=== PATIENT | female | born 1970 | race Caucasian/White ===

== ENCOUNTER → 2020-03-29 | Outpatient (CLI) | payer OTHER, MEDICAID | LOC: M.LAB 16:10 | PROVIDERS: ATTEND Internal Medicine Gastroenterology | DX: Z01.812 Encounter for preprocedural laboratory examination (principal); Z20.828 Contact with and (suspected) exposure to other viral communicable diseases; K21.9 Gastro-esophageal reflux disease without esophagitis; Z79.1 Long term (current) use of non-steroidal anti-inflammatories (NSAID); K59.09 Other constipation ==

== ENCOUNTER 2020-11-14 07:55 | Emergency (ER) | payer MEDICARE, MEDICAID ==
[~2020-11-14] VITALS: Ht 144.8 cm; Wt 49.9 kg
[2020-11-14] MEDS ORDERED: ALPRAZOLAM ER2 MG PO (08:12)
[2020-11-14] MEDS ORDERED: LEXAPRO 10 MG T10 M2 PO (08:13)
[2020-11-14] MEDS ORDERED: ALPRAZOLAM1 MG PO (08:13)
[2020-11-14] MEDS ORDERED: TRAZODONE HCL100 MG PO (08:13)
[2020-11-14] MEDS ORDERED: ADVAIR 250-501 EACH INH (08:14)
[2020-11-14] MEDS ORDERED: PROAIR HFA8.5 GM INH (08:14)
[2020-11-14] MEDS ORDERED: MAGNESIUM250 M1 PO (08:15)
[2020-11-14] MEDS ORDERED: OMEPRAZOLE40 MG PO (08:15)
[2020-11-14] MEDS ORDERED: ONDANSETRON HCL4 M2 PO (08:18)
[2020-11-14 08:39] LABS: CALCIUM 9.8 mg/dL (8.5-10.1); CREATININE 0.7 mg/dL (0.6-1.3); POTASSIUM 3.3 mmol/L (3.5-5.1)
[2020-11-14 08:43] LABS: APTT 25.3 Seconds (25.0-31.3); PROTIME 11.1 Seconds (9.20-11.50)
[2020-11-14 08:44] LABS: ALBUMIN 4.4 g/dL (3.4-5.0); TOTAL BILIRUBIN 0.6 mg/dL (<0.1-1.0); TOTAL PROTEIN 7.7 g/dL (6.4-8.2)
[2020-11-14 09:05] LABS: ABSOLUTE EOSINOPHILS 0.1 thou/uL (0.0-0.7); ABSOLUTE LYMPHOCYTES 2.2 thou/uL (0.8-5.3); ABSOLUTE MONOCYTES 0.6 thou/uL (0.0-1.2); ABSOLUTE NEUTROPHILS 4.3 thou/uL (1.6-8.1); BASOPHILS 0.6 %; EOSINOPHILS 1.9 %; HEMATOCRIT 35.8 % (37.0-47.0); LYMPHOCYTES 30.4 %; MCH 28.1 pg (26.0-34.0); MCHC 33.5 g/dL (28.0-37.0); MCV 83.8 fL (80.0-100.0); MONOCYTES 7.8 %; MPV 7.1 fl. (7.2-11.1); NUCLEATED RBCS 0 /100WBC; PLATELET COUNT* 346 thou/uL (150-400); POLYS 59.3 %; RBC 4.27 mil/uL (4.20-5.00); RDW-CV 14.4 % (10.5-14.5); WBC 7.3 thou/uL (4.0-11.0)
[2020-11-14] MEDS ORDERED: ZOFRAN ODT4 MG DISSOLVE (09:53)
[2020-11-14] MEDS ORDERED: TESSALON PERLE100 M1 PO (09:53)
[2020-11-14 10:11] VITALS: BP 147/81
--- NOTE | 2020-11-14 16:19 | EKG ---
[place] [address] ELECTROCARDIOGRAM REPORT Name: CALE CARRERA Room: [facility]#: [id number] Admission: 11/14/20 Attend Phys: Discharge: 11/14/20 Date of : 70 Date of Service: 11/14/20825 Report #: [id number] THIS REPORT FOR: //name// [facility] ED Test Date: 2020-11-14 Test Time: 08:26:18 Pat Name: CALE CARRERA Department: Room: Gender: Delivery Manager: : 1970 Requested By: Farrukh Arce Order Number: [id number] MD: Surendra Menchaca Measurements Intervals [place] Rate: 57 P: 66 [place]: 159 QRS: 9 QRSD: 106 T: 55 QT: 422 QTc: 411 Interpretive Statements Sinus rhythm RSR' in V1 or V2, right VCD No previous ECG available for comparison Electronically Signed On 11-14-2020 16:19:49 CDT by Surendra Menchaca [email or web address] <ELECTRONICALLY SIGNED> By: Surendra Menchaca MD, [facility] 11/14/20 1619 5 5 Surendra Menchaca MD, [facility] /EPI
== END 2020-11-14 10:12 | disposition home or self-care (01) ==
LOC: M.ERS 07:55
PROVIDERS: Emergency Medicine Emergency Medical Services
DX: B34.9 Viral infection, unspecified (principal); Z20.822 Contact with and (suspected) exposure to COVID-19; J45.909 Unspecified asthma, uncomplicated; Z88.0 Allergy status to penicillin; Z88.6 Allergy status to analgesic agent; Z88.8 Allergy status to other drugs, medicaments and biological substances

== ENCOUNTER 2021-02-25 02:55 | Emergency (ER) | payer MEDICARE, MEDICAID ==
[~2021-02-25] VITALS: Ht 144.8 cm; Wt 53.1 kg
[~2021-02-25 02:55] MED LIST: ADVAIR 250-501 EACH INH; ALPRAZOLAM ER2 MG PO; ALPRAZOLAM1 MG PO; LEXAPRO 10 MG T10 M2 PO; MAGNESIUM250 M1 PO; OMEPRAZOLE40 MG PO; ONDANSETRON HCL4 M2 PO; PROAIR HFA8.5 GM INH; TESSALON PERLE100 M1 PO; TRAZODONE HCL100 MG PO; ZOFRAN ODT4 MG DISSOLVE
[2021-02-25 03:31] LABS: URINE BILIRUBIN NEGATIVE (Negative); URINE BLOOD NEGATIVE (Negative); URINE CLARITY CLEAR; URINE COLOR STRAW; URINE GLUCOSE-RANDOM NEGATIVE (Negative); URINE KETONES NEGATIVE (Negative); URINE LEUKOCYTES-REFLEX 1+ (Negative); URINE NITRITE-REFLEX NEGATIVE (Negative); URINE PROTEIN NEGATIVE (Negative); URINE SPECIFIC GRAVITY <= 1.005 (1.005-1.030); URINE UROBILINOGEN 0.2 E.U./dl (0.2-1.0)
[2021-02-25 03:50] LABS: ABSOLUTE LYMPHOCYTES 1.3 thou/uL (0.8-5.3); ABSOLUTE MONOCYTES 1.1 thou/uL (0.0-1.2); ABSOLUTE NEUTROPHILS 5.8 thou/uL (1.6-8.1); BASOPHILS 0.5 %; EOSINOPHILS 0.4 %; HEMATOCRIT 28.1 % (37.0-47.0); HEMOGLOBIN 9.6 gm/dL (12.0-15.0); LYMPHOCYTES 16.2 %; MCHC 34.1 g/dL (28.0-37.0); MCV 85.1 fL (80.0-100.0); MONOCYTES 13.1 %; MPV 7.1 fl. (7.2-11.1); NUCLEATED RBCS 0 /100WBC; PLATELET COUNT* 329 thou/uL (150-400); POLYS 69.8 %; RDW-CV 14.2 % (10.5-14.5); WBC 8.3 thou/uL (4.0-11.0)
[2021-02-25 04:05] LABS: CALCIUM 8.3 mg/dL (8.5-10.1); CREATININE 0.9 mg/dL (0.6-1.3); POTASSIUM 3.9 mmol/L (3.5-5.1)
[2021-02-25 04:09] LABS: ALBUMIN 3.2 g/dL (3.4-5.0); TOTAL BILIRUBIN 0.3 mg/dL (<0.1-1.0); TOTAL PROTEIN 6.8 g/dL (6.4-8.2)
[2021-02-25 04:34] LABS: AMP/METHAMP Negative (Negative); BARBITURATES Negative (Negative); BENZODIAZEPINES POSITIVE (Negative); COCAINE Negative (Negative); METHADONE Negative (Negative); OPIATES Negative (Negative); PCP Negative (Negative); THC POSITIVE (Negative)
[2021-02-25 04:48] LABS: BACTERIA-REFLEX 1-9 Few /HPF (None Seen); CASTS None Seen /LPF (None Seen); SQUAMOUS 0-3 Few /LPF (0-3); URINE RBC None Seen /HPF (0-2); URINE WBC-REFLEX 6-15 Few /HPF (0-5)
[2021-02-25 04:49] LABS: CRYSTALS None Seen /LPF (None Seen)
[2021-02-25] MEDS ORDERED: ZOFRAN ODT4 MG PO (04:59)
[2021-02-25] MEDS ORDERED: TORADOL 10 MG T10 MG PO (04:59)
[2021-02-25] MEDS ORDERED: CEPHALEXIN500 MG PO (04:59)
[2021-02-25 05:07] VITALS: BP 130/76
== END 2021-02-25 05:07 | disposition home or self-care (01) ==
LOC: M.ERS 02:55
PROVIDERS: Personal Emergency Response Attendant
DX: R10.9 Unspecified abdominal pain (principal); Z20.822 Contact with and (suspected) exposure to COVID-19; R50.9 Fever, unspecified; R51.9 Headache, unspecified; J45.909 Unspecified asthma, uncomplicated; Z88.0 Allergy status to penicillin; Z88.5 Allergy status to narcotic agent